=== PATIENT | female | born 1990 | race Asian ===

== ENCOUNTER 2023-10-27 16:55 | Inpatient (IN) | payer OTHER ==
[2023-10-27] MEDS: LACTATED RINGERS SOLUTION 1,000 ML/1,000 ML INFUS.BAG IV SCH (17:10)
[2023-10-27 17:50] VITALS: BMI 27.4
[2023-10-27 17:51] LABS: BASO % 0.2 % (0-2.0); EOS % 0.1 % (0-4.5); HEMATOCRIT 33.2 % (32.4-45.2); HEMOGLOBIN 10.6 GM/dL (10.7-15.3); LYMPH % 10.3 % (8-40); MCH 23.3 pg (25.7-33.7); MEAN CELL VOLUME 72.8 fl (80-96); MONO % 7.6 % (3.8-10.2); NEUT % 81.8 % (42.8-82.8); PLATELET COUNT 229 10^3/uL (134-434); RBC 4.57 M/mm3 (3.60-5.2); RDW 15.4 % (11.6-15.6); WHITE BLOOD COUNT 10.5 K/mm3 (4.0-10.0)
[2023-10-27 18:01] LABS: POTASSIUM 4.3 mmol/L (3.5-5.1)
[2023-10-27 18:03] LABS: CALCIUM 8.8 mg/dL (8.5-10.1); INR 0.88 (0.83-1.09); PROTHROMBIN TIME (PATIENT) 10.2 SEC (9.7-13.0)
[2023-10-27 18:04] LABS: BLOOD UREA NITROGEN 7.9 mg/dL (7-18)
[2023-10-27 18:05] LABS: ACTIVATED PTT 25.5 SECONDS (25.2-36.5)
[2023-10-27 18:06] LABS: CREATININE 0.6 mg/dL (0.55-1.3)
[2023-10-27] MEDS ORDERED: NALOXONE HCL 0.4 MG/ML VIAL IVPUSH PRN (18:14)
[2023-10-27] MEDS ORDERED: FENTANYL/BUPIVACAINE/NS/PF - PCEA - 50 ML DISP.SYRIN EP ONE ×2 (18:22→23:23)
[2023-10-27] MEDS ORDERED: FENTANYL CITRATE/PF 50 MCG/ML VIAL ONE (18:24)
[2023-10-27] MEDS: ELECTROLYTE-148 SOLN 1,000 ML IV ONE (18:45)
[2023-10-27] MEDS: FENTANYL/BUPIVACAINE/NS/PF - PCEA - 50 ML DISP.SYRIN EP SCH (18:45)
[2023-10-27 19:00] LABS: HIV INTERPRETATION NEGATIVE (NEGATIVE)
[2023-10-27] MEDS: ELECTROLYTE-148 SOLN 1,000 ML IV SCH (19:30)
[2023-10-28] MEDS ORDERED: OXYTOCIN 30 UNITS in 0.9% NS 30 UNIT/500 ML INFUS.BAG IVPB ONE (02:42)
[2023-10-28] MEDS ORDERED: FENTANYL/BUPIVACAINE/NS/PF - PCEA - 50 ML DISP.SYRIN EP ONE (02:52)
[2023-10-28] MEDS: OXYTOCIN 30 UNITS in 0.9% NS 30 UNIT/500 ML INFUS.BAG IVPB SCH (03:00)
[2023-10-28] MEDS ORDERED: TERBUTALINE SULFATE 1 MG/1 ML VIAL SQ ONE (03:24)
[2023-10-28] MEDS ORDERED: LIDOCAINE HCL 1% PRESERVATIVE FREE - 30ML VIAL ONE (03:28)
[2023-10-28] MEDS ORDERED: OXYTOCIN 20 UNITS in 0.9% NS 20 UNIT/1,000 ML INFUS.BAG IV ONE (03:28)
[2023-10-28] MEDS: OXYTOCIN 20 UNITS in 0.9% NS 20 UNIT/1,000 ML INFUS.BAG IV SCH (07:30)
[2023-10-28 07:50] LABS: CORD BASE EXCESS -5.8 mmol/L (0-2); CORD PCO2 40.1 mmHg (30-78); CORD pH 7.315 (7.14-7.44)
[2023-10-28 07:56] LABS: CORD BASE EXCESS -6.5 mmol/L (0-2); CORD HCO3 21.3 mmHg (20-29); CORD PCO2 50.8 mmHg (30-78); CORD pH 7.24 (7.14-7.44)
[2023-10-28] MEDS ORDERED: WITCH HAZEL 50% (TUCKS) 40 PAD/JAR PAD TP PRN (08:22)
[2023-10-28] MEDS ORDERED: METHYLERGONOVINE MALEATE 0.2 MG/1 ML AMP IM PRN (08:22)
[2023-10-28] MEDS ORDERED: oxyCODONE HCL 5 MG TABLET PO PRN (08:22)
[2023-10-28] MEDS ORDERED: BISACODYL 10 MG SUPP.RECT RC PRN (08:22)
[2023-10-28] MEDS ORDERED: PRENATAL VITAMINS W/ FOLIC ACID TABLET (FP) PO ONE (09:23)
[2023-10-28] MEDS ORDERED: ACETAMINOPHEN 325 MG TABLET (FP) ONE (09:23)
[2023-10-28] MEDS: PRENATAL VITAMINS W/ FOLIC ACID TABLET (FP) PO SCH (09:24)
[2023-10-28] MEDS: ACETAMINOPHEN 325 MG TABLET (FP) PO PRN (09:24)
[2023-10-28] MEDS: FERROUS SO4 325 MG TABLET (FP) PO SCH (12:52)
[2023-10-28] MEDS: BENZOCAINE 20% 57 GM BOTTLE TP PRN (13:56)
[2023-10-28] MEDS: BENZOCAINE 28 GM HEMORRHOIDAL OINTMENT TP PRN (13:57)
[2023-10-28] MEDS: IBUPROFEN 600 MG TABLET (FP) PO PRN (13:57)
[2023-10-29 06:13] LABS: BASO % 0.4 % (0-2.0); EOS % 0.5 % (0-4.5); HEMATOCRIT 27.6 % (32.4-45.2); HEMOGLOBIN 8.6 GM/dL (10.7-15.3); LYMPH % 11.2 % (8-40); MCHC 31.2 g/dl (32.0-36.0); MEAN CELL VOLUME 73.8 fl (80-96); MEAN PLT VOLUME 8.7 fl (7.5-11.1); MONO % 5.1 % (3.8-10.2); NEUT % 82.8 % (42.8-82.8); PLATELET COUNT 157 10^3/uL (134-434); RBC 3.74 M/mm3 (3.60-5.2); RDW 15.2 % (11.6-15.6); WHITE BLOOD COUNT 13.8 K/mm3 (4.0-10.0)
[2023-10-29] MEDS: SENNOSIDES/DOCUSATE COMBO (SENNA PLUS) TABLET (UD) PO PRN (22:13)
[2023-10-30 10:17] VITALS: BP 114/69; PULSE 85; TEMP 98.2
[2023-10-30 10:40] VITALS: RESP 20
[2023-11-09 07:47] LABS: POC NITRAZINE POS
== END 2023-10-30 15:15 | disposition home or self-care (01) | DRG 560 ==
LOC: JDEL 16:55 → JLDR 17:07 → J3W 10-28 10:00
PROVIDERS: ADMIT Obstetrics & Gynecology; ATTEND Obstetrics & Gynecology
PROC: 10E0XZZ Delivery of Products of Conception, External Approach (ICD-10-PCS; principal; 2023-10-27)
DX: O70.1 Second degree perineal laceration during delivery (principal); O69.1XX0 Labor and delivery complicated by cord around neck, with compression, not applicable or unspecified; Z3A.38 38 weeks gestation of pregnancy; Z37.0 Single live birth
CPT/HCPCS: 36415; 36600; 80048; 82803; 83986-QW; 85025; 85610; 85730; 86780; 86850; 86900; 86901; 87389